=== PATIENT | male | born 1960 | race Caucasian/White ===

== ENCOUNTER → 2018-10-15 | Outpatient (CLI) | payer OTHER ==
--- NOTE | 2018-10-15 13:07 | MRI ---
EXAM DESCRIPTION: Abdomen w/wo Contrast CLINICAL HISTORY: 58 years Male, mass OF THE RIGHRT ADRENAL GLAND COMPARISON: None. TECHNIQUE: Multiplanar, multisequence MR images of the abdomen are obtained with and without infusion of IV gadolinium contrast using adrenal gland imaging protocol. FINDINGS: Mass involving the body and medial limb of the right adrenal gland measures 2.8 x 1.5 cm. This lesion shows significant decreased signal on out of phase imaging compared to in phase imaging. No diffusion restriction of the lesion is seen. No abnormal enhancement is identified. Lesion appears relatively homogeneous in signal on T2 and T1-weighted sequences. Small nodule of the lateral limb of the right adrenal gland measures 9 mm and also shows decreased signal on out of phase imaging. The liver, spleen, and pancreas are unremarkable. There is surgical absence of the gallbladder. No biliary tract obstruction. No evidence of pancreas divisum. No pathologic enlarged lymph nodes. Kidneys show normal cortical signal and enhancement without hydronephrosis. The stomach and visualized small bowel and colon are unremarkable. Nonspecific less than 1 cm lymph nodes in the epigastric region are seen. Osseous structures show no aggressive bony lesions. IMPRESSION: Left adrenal gland mass measuring 2.8 cm with MR imaging findings consistent with lipid rich adenoma. Small 9 mm nodule of the right adrenal gland is also consistent with lipid rich adenoma. Otherwise unremarkable MRI of the abdomen. Electronically signed by: Ryan Levin MD 10/15/2018 1:06 PM TRANSITION RN
== END ==
LOC: MRI 08:53
PROVIDERS: ATTEND Internal Medicine Endocrinology, Diabetes & Metabolism
DX: D35.02 Benign neoplasm of left adrenal gland (principal); D35.01 Benign neoplasm of right adrenal gland

== ENCOUNTER → 2019-01-04 | Outpatient (CLI) | payer OTHER ==
--- NOTE | 2019-01-05 12:00 | MRI ---
EXAM DESCRIPTION: Brain w/oContrast CLINICAL HISTORY: INCOMPLETE BITEMPERAL HEMIANOPIA COMPARISON: None available TECHNIQUE: Non contrast MRI of the brain is performed according to our usual protocol including multiplanar multi sequence technique. FINDINGS: Sagittal T1 images show intact corpus callosum. Normal pituitary gland with normal T1 appearance of the balbina and medulla and upper cervical cord. Normal signal intensity within the clivus and calvarium. Axial T2 fat sat images reveal preservation of intracranial vascular flow voids. Normal brewster matter and white matter T2 signal intensity. Normal ventricles with normal gyral and sulcal fold pattern. The globes appear intact and symmetrical. Normal optic nerves. No abnormal fluid signal in the paranasal sinuses, tympanic cavities or mastoid air cells. Axial flair images show a few tiny subcortical white matter hyperintensities in the cerebral hemispheres which could be minimal chronic microvascular ischemic change or sequelae of migraine headaches.. Diffusion weighted images are negative for focal intense increased signal intensity in the brain parenchyma to suggest restricted diffusion. ADC mapping is negative. Axial T1 images show normal brewster-white matter differentiation. No high signal intensity hemorrhagic lesion of the brain parenchyma. No subdural hematoma. Other than mild signal loss in the basal ganglia, axial susceptibility weighted images are negative for focal signal loss to suggest abnormal brain parenchymal calcification or hemosiderin deposition. IMPRESSION: No acute intracranial pathologic process. Electronically signed by: Adan Cooper MD 01/05/2019 11:57 AM CDT
== END ==
LOC: MRI 12:56
PROVIDERS: ATTEND Emergency Medicine
DX: H53.47 Heteronymous bilateral field defects (principal)

== ENCOUNTER → 2019-08-09 | Outpatient (CLI) | payer OTHER ==
--- NOTE | 2019-08-10 11:33 | CT ---
Procedure: CT LUNG SCREENING Exam Date: 08/09/2019. Ordering Provider: NAMITA STAFFORD Clinical Indication: PERSONAL HISTORY OF TOBACCO USE . Current cigarette smoker. 68 pack years. This patient meets eligibility criteria for low-dose CT lung cancer screening. Comparison: MRI scan of the adrenal glands 15 October 2018. Technique: Using a multislice scanner, sequential helical axial imaging was obtained in the thorax, 2.5 mm thickness, 2.5 mm separation, from the level of the thoracic inlet through the lung bases without IV contrast. A low dose protocol was utilized for BMI greater than 30: BMI: 30.2. CTDI: 2.92 mGy. 120. kVp. 75 mA. DLP 123.63 mGy-centimeters. 2D sagittal and coronal reconstructed images, 6.0 mm thickness, were obtained. This exam was performed according to our departmental dose optimization program which includes use of automated exposure control, adjustment of the mA and/or kV according to patient size and/or use of iterative reconstruction technique. Nodule measurements under 10 mm are given as mean value of 3 axes diameters. FINDINGS: Lungs and large airways: Bilateral small proximal blebs in a centrilobular distribution more prevalent in the upper lung stallings. 3.5 mm nodule right upper lobe lateral near the base is solid but could also represent pleural focal thickening on axial image /48. Bilateral minimal mosaic parenchymal densities more obvious in the upper lobes. Pleura and space: Focal pleural thickening bilaterally. Otherwise Negative. Mediastinum and kulwant: evaluation limited by low dose technique and lack of IV contrast. 1.4 x 1.1 cm lymph node in the azygos space. No dominant solid mass. Heart and great vessels: Atherosclerotic calcifications in aortic arch, descending thoracic aorta, and coronary vessels. Chest wall, lower neck, axillae: Evaluation also limited by same factors as described above. Bilateral normal size axillary lymph nodes. Upper abdomen: Evaluation limited by low-dose technique. Left adrenal enlargement measuring approximately 1.9 x 1.3 cm with Hounsfield density -9 consistent with an adrenal adenoma. Normal size and density of the spleen and right adrenal gland. No free air or free fluid in the included peritoneal space. Surgical clips in the gallbladder fossa with no fluid. Osseous structures: Evaluation limited by low dose MIP technique. Minimal spondylosis mid and lower thoracic spine. Minimal arthrosis sternoclavicular joints and sternomanubrial joint. IMPRESSION: 1. Minimal emphysematous changes in the lungs bilaterally more prevalent in the upper lung stallings. More likely focal pleural thickening within subpleural solid nodule abutting the right upper lobe laterally near the base. No abnormal nodule. No mass. No focal infiltrate. [facility] Best Practice Recommendations: please see below for Lung RADS category and FOLLOW-UP.* *Lung RADS category CATEGORY 2- Nodules with a very low likelihood (less than 1%) of becoming a clinically active cancer due to size or lack of growth. Nodules: Perifissural nodule(s) < 10 mm. (526mm3). Solid or part solid nodule(s) less than 6mm (113.1 mm3), new solid nodule less than 4mm (33.5 mm3). Ground glass nodule(s) less than 30mm (43973.2 mm3) or unchanged or slow growing ground glass nodule 30mm or greater. Cat 3 or 4 nodule unchanged for 3 or more months. FOLLOW-UP: Continue annual screening with a Low Dose Chest CT in 12 months for re-evaluation. 2. Left adrenal mass consistent with a lipid rich adrenal adenoma. Slightly decreased in size compared to prior MRI scan, otherwise consistent with those findings. No further imaging follow-up recommended. Electronically signed by: Dominick Ventura MD 08/10/2019 11:32 AM CDT
== END ==
LOC: CT 08:00
PROVIDERS: ATTEND Emergency Medicine
DX: Z87.891 Personal history of nicotine dependence (principal); J43.9 Emphysema, unspecified; R91.8 Other nonspecific abnormal finding of lung field; R91.1 Solitary pulmonary nodule; E27.8 Other specified disorders of adrenal gland

== ENCOUNTER → 2020-10-30 | Outpatient (CLI) | payer OTHER ==
--- NOTE | 2020-10-30 14:42 | CT ---
Procedure: CT LUNG SCREENING Exam Date: October 30, 2020. Ordering Provider: NAMITA STAFFORD Clinical Indication: LUNG SCREEN . Current cigarette smoker. 45 pack years. This patient meets eligibility criteria for low-dose CT lung cancer screening. Comparison: Low-dose CT lung cancer screening examination July 2019. Technique: Using a multislice scanner, sequential helical axial imaging was obtained in the thorax, 2.5 mm thickness, 2.5 mm separation, from the level of the thoracic inlet through the lung bases without IV contrast. A low dose protocol was utilized for BMI less than 30: BMI: 29. CTDI: 1.76 mGy. 120. kVp. 45 mA. DLP 74 mGy-cm. 2D sagittal and coronal reconstructed images, 6.0 mm thickness, were obtained. This exam was performed according to our departmental dose optimization program which includes use of automated exposure control, adjustment of the mA and/or kV according to patient size and/or use of iterative reconstruction technique. Nodule measurements under 10 mm are given as mean value of 3 axes diameters. FINDINGS: Lungs and large airways: Sessile like projection from the lateral subpleural right upper lobe or pleura is stable since the prior study. Bilateral small blebs predominantly in the upper lobes in a centrilobular distribution are unchanged. 3 mm groundglass nodule subpleural medial superior segment left lower lobe on axial series 2, image 97 are not well seen on the prior study which may be due to technique. Lungs are otherwise stable since the prior study with no abnormal nodule, and no mass. No sulcal or interval development of infiltrate. Pleura and space: No change. Mediastinum and kulwant: evaluation limited by low dose technique and lack of IV contrast. 14 mm azygous node anterior to the proximal right main bronchus is stable. No new lymph nodes or dominant solid mass. Heart and great vessels: Coronary artery calcifications and atherosclerotic calcifications of the aorta with no interval change Chest wall, lower neck, axillae: Evaluation also limited by same factors as described above. Stable subclavian and axillary nodes. No dominant new soft tissue mass. Upper abdomen: Evaluation limited by low-dose technique. No free air or free fluid. Surgical clips gallbladder fossa within the fluid. Osseous structures: Evaluation limited by low dose MIP technique. Spondylosis in the thoracic spine T6-T10 disc spaces. Arthrosis shoulder joints including the clavicle sternomanubrial joint and sternoclavicular joints. IMPRESSION: 1. Lateral right upper lobe subpleural sessile shape nodule is stable and most likely related to the pleura. Groundglass nodule medial subpleural superior segment right lower lobe 3-4 mm and not well seen on the prior study, which may be due to technique. Stable mild emphysematous changes predominantly in the upper lobes. No abnormal nodules, no mass, no focal or interval development of infiltrate. [facility] Best Practice Recommendations: please see below for Lung RADS category and FOLLOW-UP.* *Lung RADS category CATEGORY 2- Nodules with a very low likelihood (less than 1%) of becoming a clinically active cancer due to size or lack of growth. Nodules: Perifissural nodule(s) < 10 mm. (526mm3). Solid or part solid nodule(s) less than 6mm (113.1 mm3), new solid nodule less than 4mm (33.5 mm3). Ground glass nodule(s) less than 30mm (20037.2 mm3) or unchanged or slow growing ground glass nodule 30mm or greater. Cat 3 or 4 nodule unchanged for 3 or more months. FOLLOW-UP: Continue annual screening with a Low Dose Chest CT in 12 months for re-evaluation. Electronically signed by: Dominick Ventura MD 10/30/2020 2:41 PM [facility]
== END ==
LOC: CT 10:24
PROVIDERS: ATTEND Emergency Medicine
DX: Z12.2 Encounter for screening for malignant neoplasm of respiratory organs (principal); R91.8 Other nonspecific abnormal finding of lung field; Z87.891 Personal history of nicotine dependence